=== PATIENT | male | born 1980 | race Caucasian/White ===

== ENCOUNTER 2017-04-22 15:35 | Emergency (ER) | payer OTHER ==
[~2017-04-22] VITALS: Ht 177.8 cm; Wt 82.0 kg
[2017-04-22 15:47] VITALS: TEMP 37; Ht 177.8 cm; Wt 82.0 kg
[2017-04-22] MEDS ORDERED: ACETAMINOPHEN 500 MG TAB PO STA (15:58)
[2017-04-22] MEDS ORDERED: KETOROLAC TROMETHAMINE 60 MG/2 ML VIAL IM STA (15:58)
--- NOTE | 2017-04-22 16:28 | DIAGNOSTIC IMAGING REPORT ---
LUMBAR SPINE 5 VIEWS CLINICAL HISTORY: Fall several days ago. Low back pain. FINDINGS: 5 views of the lumbar spine are compared to study dated 09/05/2014. The skeletal structures are well mineralized. There is no radiographic evidence of fracture or malalignment. Vertebral body height and alignment are maintained. Small anterior osteophytes are seen throughout. The transverse and spinous processes are intact. There is no evidence of spondylolysis. There is mild to moderate disc space narrowing seen from L3-L4 through L5-S1. The remaining intervertebral disc spaces are maintained. Mild sclerotic change is noted in the sacroiliac joints. The visualized bony pelvis appears intact. There is a nonobstructed abdominal bowel gas pattern. IMPRESSION: No acute bony abnormality is seen involving the lumbosacral spine. Electronically signed by: Rolf Guillen M.D. 04/22/2017 4:27 PM Dictated Date/Time: 04/22/2017 4:26 PM
--- NOTE | 2017-04-22 16:39 | DIAGNOSTIC IMAGING REPORT ---
PELVIS 1 OR 2 VIEW ROUTINE CLINICAL HISTORY: Fall. Left sided pelvic pain. COMPARISON STUDY: No previous studies for comparison. FINDINGS: Sacroiliac joints and symphysis pubis are intact. No acute fracture is identified within the pelvis or hips. IMPRESSION: No acute fracture within the pelvis or hips. Electronically signed by: Tacos Jeff M.D. 04/22/2017 4:38 PM Dictated Date/Time: 04/22/2017 4:37 PM
[2017-04-22] MEDS ORDERED: METH4PAK PO (17:06)
[2017-04-22] MEDS ORDERED: TRAM-10 PO (17:06)
--- NOTE | 2017-04-22 17:15 | EMERGENCY ROOM VISIT NOTE ---
History First contact with patient: 15:51 Chief Complaint: BACK PAIN Stated Complaint: BACK PAIN History of Present Illness The patient is a 36 year old male who presents to the Emergency Room with complaints of lower back pain after slipping and falling on the ice last Saturday morning. The patient was shoveling snow and slipped. The patient reports falling flat on his back and buttocks. Since that time, the patient has developed pain radiating down the left lower extremity to the foot. He has not had any bladder or bowel incontinence, left lower extremity weakness, foot drop or saddle anesthesias. The patient does report a history of chronic back issues with a history of scoliosis. The patient has not required any prior back surgery, epidural steroid injections, physical therapy or other extensive interventions. The patient has taken ibuprofen without relief, and currently rates his discomfort a 7 out of 10. Review of Systems 10 system review was performed and was negative except for pertinent positives and negatives as indicated in history of present illness Past Medical/Surgical History Medical Problems: (1) Lumbago (2) Scoliosis Surgical Problems: (1) No history of previous surgery Family History FH: hypertension Social History Smoking Status: Current Every Day Smoker Alcohol Use: occasionally Marital Status: single, in relationship Housing Status: lives with family, lives with significant other Occupation Status: unemployed Current/Historical Medications Scheduled Methylprednisolone (Medrol Dosepak), 0 PO DAILY Scheduled PRN Tramadol (Ultram), 1-2 TAB PO Q4H PRN for Pain Physical Exam Vital Signs Date Time Temp Pulse Resp B/P (MAP) Pulse Ox O2 Delivery O2 Flow Rate FiO2 04/22/17 15:47 37.0 87 20 139/79 98 Room Air Physical Exam CONSTITUTIONAL: Healthy and well nourished. Alert and oriented X 3 with positive affect. Patient appears in mild discomfort on exam. HEENT: Normocephalic, atraumatic. Pupils equal, round and reactive. NECK: Full active range of motion without discomfort. RESPIRATORY: Clear to auscultation bilaterally with no wheezing, crackles, rhonchi or stridor. CARDIOVASCULAR: Regular rate and rhythm with no murmurs, rubs or gallops. GASTROINTESTINAL: Bowel sounds present in all quadrants. Soft and nontender to palpation. MUSCULOSKELETAL: Examination shows generalized tenderness to palpation through the lower lumbar paraspinous muscles, left worse than right. He is also tender through the left SI joint. Negative logroll. Negative sitting straight leg raise. Pedal pulses are intact. Ankle plantar/dorsiflexion strength is 5 out of 5 and symmetric bilaterally. INTEGUMENTARY: No rash or other significant dermatologic conditions noted. NEUROLOGIC: No focal neurologic deficits noted. Left foot and toes are sensory intact. Medical Decision & Procedures ER Provider Diagnostic Interpretation: My interpretation of lumbar spine and pelvis x-rays does not show any acute fractures, dislocation, subluxation or lordotic reversal. Radiologist reports are as follows: LUMBAR SPINE 5 VIEWS CLINICAL HISTORY: Fall several days ago. Low back pain. FINDINGS: 5 views of the lumbar spine are compared to study dated 09/05/2014. The skeletal structures are well mineralized. There is no radiographic evidence of fracture or malalignment. Vertebral body height and alignment are maintained. Small anterior osteophytes are seen throughout. The transverse and spinous processes are intact. There is no evidence of spondylolysis. There is mild to moderate disc space narrowing seen from L3-L4 through L5-S1. The remaining intervertebral disc spaces are maintained. Mild sclerotic change is noted in the sacroiliac joints. The visualized bony pelvis appears intact. There is a nonobstructed abdominal bowel gas pattern. IMPRESSION: No acute bony abnormality is seen involving the lumbosacral spine. PELVIS 1 OR 2 VIEW ROUTINE CLINICAL HISTORY: Fall. Left sided pelvic pain. COMPARISON STUDY: No previous studies for comparison. FINDINGS: Sacroiliac joints and symphysis pubis are intact. No acute fracture is identified within the pelvis or hips. IMPRESSION: No acute fracture within the pelvis or hips. Medications Administered Medications (Trade) Dose Ordered Sig/Stacia Route Start Time Stop Time Status Last Admin Dose Admin Ketorolac Tromethamine (Toradol Inj) 60 mg NOW STAT IM 04/22/17 15:58 04/22/17 16:00 DC 04/22/17 16:35 60 MG ED Course Patient history and physical exam were performed. Nurse's notes were reviewed. Vital signs were reviewed and were normal. The patient was administered IM Toradol for pain. The patient refused oral Tylenol. X-rays of the lumbar spine and pelvis did not show any acute findings. The patient was provided prescriptions for a Medrol Dosepak and Ultram. He was encouraged to follow-up with his PCP for recheck in 2-3 days. The patient was instructed to seek further emergent reevaluation for any developing left lower extremity weakness, foot drop, saddle anesthesias or bladder/bowel incontinence. The patient voiced understanding of all discharge instructions, was happy with plan of care , and rated his discomfort a 5 out of 10 at the conclusion of my exam. Medical Decision History and physical exam findings are not consistent with cauda equina syndrome. The patient has no obvious fractures on x-ray. The patient does have symptoms consistent with an acute left lumbar radiculitis. Based on history, I do not suspect spinal abscess. [place] Drug Monitoring Program Search Results: patient reviewed within database, no issues identified Medication Reconcilliation Current Medication List: was personally reviewed by me Blood Pressure Screening Patient's blood pressure: Normal blood pressure Impression Primary Impression: Left lumbar radiculitis Additional Impression: Fall from slipping on slippery surface Departure Information Prescriptions Tramadol (Ultram) 50 Mg Tab 1-2 TAB PO Q4H Y for Pain, #20 TAB For Initial Treatment Prov: Alfredito Elder PA 04/22/17 Methylprednisolone (MEDROL DOSEPAK) 4 Mg Lavon 0 PO DAILY, #1 PKT Prov: Alfredito Elder PA 04/22/17 Referrals Efren Horner D.O. (PCP) Patient Instructions My [facility] Problem Qualifiers Additional Impression: Fall from slipping on slippery surface Encounter type: initial encounter Qualified Codes: W01.0XXA - Fall on same level from slipping, tripping and stumbling without subsequent striking against object, initial encounter
[2017-04-22 17:18] VITALS: BP 129/60; PULSE 86; O2SAT 97
--- NOTE | 2017-04-23 11:02 | Pharmacy Progress Note ---
ED Pharmacist Progress Note Date of Service: Apr 23, 2017. Charge nurse requested I go to the waiting room to speak to this patient as he was having trouble getting his Rx filled. Upon meeting with patient, he showed me a Rx bottle for tramadol which he had already filled and stated "These are ripping up my stomach. I can't take them. I need you to give me something different for pain because these aren't working." Upon talking with the patient further he stated he was already taking the medication with food and he has tried ibuprofen and Tylenol without relief as they also are too harsh on his stomach. He stated he had already called his PCP who stated they could not provide him with a different Rx as they were not familiar with his case and referred him to the ER. I relayed this info to the charge nurse. She advised counseling the patient to continue the Medrol dose pack and give it time to work before requesting new analgesic medication. This info was relayed to the patient who became visibly upset and stated "tell your supervisor [employer] that I will go buy the drugs on the street then." He then turned to depart the waiting room.
[2017-04-23] MEDS ORDERED: OMEP40CA41 PO (12:16)
[2017-04-23] MEDS ORDERED: OXYC1TAB3 PO (12:16)
== END 2017-04-22 17:20 | disposition home or self-care (01) ==
LOC: C.EDB 15:36 → C.EDD 17:20
DX: M54.16 Radiculopathy, lumbar region (principal); W00.0XXA Fall on same level due to ice and snow, initial encounter; Y92.89 Other specified places as the place of occurrence of the external cause; Y93.H1 Activity, digging, shoveling and raking; M41.9 Scoliosis, unspecified; Z82.49 Family history of ischemic heart disease and other diseases of the circulatory system; F17.210 Nicotine dependence, cigarettes, uncomplicated

== ENCOUNTER 2017-04-23 11:07 | Emergency (ER) | payer OTHER ==
[~2017-04-23] VITALS: Ht 177.8 cm; Wt 81.4 kg
[~2017-04-23 11:07] MED LIST: METH4PAK PO; TRAM-10 PO
[2017-04-23 11:16] VITALS: TEMP 37.1; Ht 177.8 cm; Wt 81.4 kg
[2017-04-23] MEDS ORDERED: DESTROY THIS MEDICATION ONE (12:15)
[2017-04-23] MEDS ORDERED: OMEP40CA41 PO (12:16)
[2017-04-23] MEDS ORDERED: OXYC1TAB3 PO (12:16)
--- NOTE | 2017-04-23 12:21 | EMERGENCY ROOM VISIT NOTE ---
ED Visit Note First contact with patient: 11:39 CHIEF COMPLAINT: Low back pain HISTORY OF PRESENT ILLNESS: This 36-year-old male patient presents to the emergency department ambulatory, complaining of pain in the low back which began last Saturday after a fall. The patient was seen here yesterday for the pain, was given a prescription for tramadol and Medrol Dosepak. The patient states he took 2 tramadol last evening at dinner and ate spaghetti with garlic bread, and also took his first dose of Medrol dose pack last night. He states shortly afterward, he began experiencing abdominal discomfort, nausea, and irritation. The patient states he feels that the tramadol is causing the GI upset. Of note, the patient also complains of GI upset when taking Tylenol and occasionally with ibuprofen. The patient states he was taking 4-6 800 mg tablets of ibuprofen 3-4 times the day after the fall. He states he did not continue taking it as often, but he does frequently take this dose of medication for his pain. The patient states he has also been taking "a few tablets" a Flexeril for muscle spasms, without significant relief. The patient states yesterday he did feel that the Toradol irritated his stomach, though it did help minimally with his pain. He has not continued to take any OTC pain medications. He did not reinjure the back. Please see lolly Han's dictation regarding incident with the patient in the waiting room prior to the patient checking in to be seen today. The patient states his pain never improves, and is worse with movement. He was unable to sleep well last night due to the discomfort. The patient denies any loss of control of their bowel or bladder functions. There has been no leg numbness or weakness, and no change in sensation. No nausea or vomiting or abdominal pain. No chest pain or shortness of breath. The patient has had prior back injuries. No dysuria or increased urinary frequency. The patient did contact his PCP today, who was unable to see him, as the patient is already established patient with them. The patient states their name was on his Medicaid insurance card, and they have dealt with his back pain in the past when he has had MRI's and other treatment performed. REVIEW OF SYSTEMS: A 10 system review of systems was performed with positives and pertinent negatives listed in the history of present illness. All other systems were reviewed and are negative. ALLERGIES: None MEDICATIONS: Medrol Dosepak PMH: Low back pain SOCIAL HISTORY: The patient lives locally with family. He denies drug, alcohol use. The patient admits to smoking cigarettes daily. PHYSICAL EXAM: VITALS: Vitals are noted on the nurse's note and reviewed by myself. Vital signs stable. GENERAL: This is a 36 year old white male, in no acute distress, nondiaphoretic , well-developed well-nourished. The patient is lying in the litter talking on the cell phone. He does not appear to be in any acute distress or significant amount of pain while lying on the litter. SKIN: The skin was without rashes, erythema, edema, or bruising. Capillary refill less than 2 seconds. NECK: Supple without nuchal rigidity. No cervical spine tenderness. No paraspinous muscle tenderness. HEART: Regular rate and rhythm without murmurs gallops or rubs. LUNGS: Clear to auscultation bilaterally without wheezes, rales or rhonchi. ABDOMEN: Positive bowel sounds x 4. Normal tympanic percussion. Soft, nontender, without masses or organomegaly. Crowder sign negative. MUSCULOSKELETAL: No muscle atrophy, erythema, or edema noted of the back. There is moderate tenderness over the lumbar spinous processes. There is moderate tenderness over the paraspinous muscles bilaterally. There is no tenderness over the thoracic spine or paraspinous muscles. There are no muscle spasms present. The patient is slow to move around with maximum tenderness with position changes. Positive straight leg raise test. NEURO: Patient was alert and oriented to person place and time. Normal sensation to light and sharp touch. Deep tendon reflexes 2+ in the lower extremities. Dorsalis pedis pulse 2+ bilaterally. Strength 5/5 and equal in the bilateral lower extremities. EMERGENCY DEPARTMENT COURSE: The patient was seen and evaluated as above. I did speak with Guille pharmacist and [employer] supervisor, regarding the incident in the waiting room. They state the patient became agitated and did leave the emergency department for approximately 10 minutes, then did return and decided to be seen. I had a long discussion with the patient regarding proper use of OTC pain medication as well as proper use of prescription medication, as the patient has been taking much higher than recommended dosages of muscle relaxers and ibuprofen. I do suspect a possible gastritis with possible gastric ulcer component to his GI upset, as his symptoms are related to Tylenol and Tramadol, neither of which are well-known for causing this symptom. He experienced the GI upset after taking several medications at one time and eating a high-acidity food last evening. I discussed with the patient the possibility that the Medrol Dosepak was responsible for his symptoms and he states he does not feel that that is what caused the symptoms. The patient states he has been using excessive amounts of ibuprofen without GI upset and has not had a problem with the steroids. He states he continues to be in a significant amount of pain despite medications he has been taking. I spoke with Guille, Pharmacist, regarding possible pain management options for this patient. The patient is on Medrol Dosepak, so we did not wish to start the patient on NSAIDs at this time. Due to the patient's reaction to Tramadol and acetaminophen , he will be given a VERY short course of OxyIR to help him in this acute phase of his pain. I also discussed with Guille and the patient my concerns regarding the high dose of NSAIDs the patient takes. I strongly encouraged him to follow- up with his PCP for possible further testing to evaluate for GI ulcer. We did agree to start the patient on a PPI until he is able to see his PCP for follow- up. The patient is agreeable to this plan. I did reiterate several times to the patient that we will not treat his pain chronically here in the ED, and that he would need to see his PCP or consider orthopedic follow-up if he continues to experience back pain. The patient did give me his Tramadol pills which he brought to the ED with him to be destroyed. I advised him that I do not wish for him to have multiple narcotic prescriptions lying around with the potential for abuse. The patient was agreeable, as he felt they made him sick anyway. The pill bottle was given to Guille, ED pharmacist, to be destroyed. The patient did not have any acute pain in his abdomen, specifically LUQ, so I did not feel that he requires emergent evaluation for gastric ulcer/perforation , though I do feel that outpatient monitoring and management is warranted. Of note, the patient did apologize for his outburst and comment in the waiting room regarding getting narcotic medications on the street. The patient states "I wouldn't even know where to get them". PDMP was reviewed, and did not reveal any suspicious findings. I attest that I have personally reviewed the patient's current medication list. Patient was found to have normal blood pressure on screening and does not require follow-up. Etiologies such as lumbago, sciatica, cauda equina, epidural abscess, osteomyelitis, fracture, aortic disease, metastatic disease, infection, renal colic, gastrointestinal, as well as others were entertained. DIAGNOSIS: Lumbar contusion, lumbar radiculitis, fall on slippery surface Problem List Medical Problems: (1) Lumbago Status: Chronic (2) Scoliosis Status: Chronic Current/Historical Medications Scheduled Methylprednisolone (Medrol Dosepak), 0 PO DAILY Omeprazole (Prilosec), 40 MG PO DAILY Scheduled PRN Oxycodone Ir (Roxicodone Ir), 1 TAB PO Q6H PRN for Pain Allergies Coded Allergies: No Known Allergies (Unverified , 04/23/17) Vital Signs Date Time Temp Pulse Resp B/P (MAP) Pulse Ox O2 Delivery O2 Flow Rate FiO2 04/23/17 12:41 85 18 125/82 98 04/23/17 11:16 37.1 7 18 121/77 98 Room Air Departure Information Impression Primary Impression: Contusion of lower back Additional Impressions: Left lumbar radiculitis Fall from slipping on slippery surface Dispostion Home / Self-Care Condition GOOD Prescriptions Omeprazole (PRILOSEC) 40 Mg Cap 40 MG PO DAILY for 30 Days, #30 CAP Prov: Nicol Mendez PA-C 04/23/17 Oxycodone Ir (Roxicodone Ir) 5 Mg Tab 1 TAB PO Q6H Y for Pain, #4 TAB For Initial Treatment Prov: Nicol Mendez PA-C 04/23/17 Referrals No Doctor, Assigned (PCP) Patient Instructions ED Chronic Pain Management, ED Low Back Pain Injury, [facility] Additional Instructions You have been treated in the Emergency Department for Back Pain. You have been prescribed OxyIR to be used for pain control. This is a narcotic medication. You cannot drive or consume alcohol while on this medicine. This medicine should only be used for pain that cannot be controlled with over-the- counter pain medicines. Take this medication ONLY as prescribed. It can cause dependence if used improperly or for long periods of time. Use the Flexeril you have at home for any muscle spasms. Take your first dose at bedtime as it can make you drowsy. Always take all medications as prescribed. As discussed, I suspect some GI irritation or possible ulcer due to your overuse of NSAIDs and concomitant steroid use. I do recommend you start Prilosec 40 mg daily until advised otherwise by your PCP. Do not ever exceed recommended daily dosages of medications. Please do not ever take prescription medications differently than they are prescribed. Continue to take the Medrol Dosepak as prescribed. Do not take any NSAIDs ( ibuprofen, Motrin, Advil, Aleve, naproxen, Naprosyn) while taking Medrol Dosepak. For pain control, you can use the following [id number]-[id number] medicines (if >12 yo): Ibuprofen(Motrin, Advil) may be used for fever or pain. Use 600mg every six hours as needed. Take with food. Avoid using more than 2400mg in a 24 hour period. Do not use 2400mg per day for more than three consecutive days without physician direction. Prolonged inappropriate use can lead to stomach upset or ulcers. Do not take this medication while taking Medrol Dosepak or other steroids. (AND/OR) Acetaminophen(Tylenol) may be used for fever or pain. Use 1000mg every six hours as needed. Avoid using more than 3000mg in a 24 hour period. If this is an acute injury, ice can be applied to the area of pain for the first 3 days to help decrease pain and inflammation. After the first 3 days, a heating pad can be used over the area for continued soothing relief. You should schedule a follow-up appointment in 2-3 days with your Primary Care Provider for further evaluation and treatment of your back pain. It is imperative that you follow-up with them regarding the GI irritation and long- term back pain. As discussed, you may benefit from Physical Therapy. The ER will not prescribe chronic pain medication. You should seek care by your PCP regarding the need for any further pain medication. Return to the Emergency Department if your current symptoms worsen despite treatment course outlined above, or if you develop any of the following symptoms : intractable pain despite aforementioned treatment course, loss of control of your bowel or bladder, numbness or tingling in your groin, or development of a fever. Problem Qualifiers Primary Impression: Contusion of lower back Encounter type: subsequent encounter Qualified Codes: S30.0XXD - Contusion of lower back and pelvis, subsequent encounter Additional Impressions: Fall from slipping on slippery surface Encounter type: subsequent encounter Qualified Codes: W01.0XXD - Fall on same level from slipping, tripping and stumbling without subsequent striking against object, subsequent encounter
[2017-04-23 12:41] VITALS: BP 125/82; PULSE 85; O2SAT 98
== END 2017-04-23 12:41 | disposition home or self-care (01) ==
LOC: C.EDB 11:09 → C.EDD 12:41
DX: S30.0XXA Contusion of lower back and pelvis, initial encounter (principal); W01.0XXA Fall on same level from slipping, tripping and stumbling without subsequent striking against object, initial encounter; M54.16 Radiculopathy, lumbar region; M41.9 Scoliosis, unspecified; F17.200 Nicotine dependence, unspecified, uncomplicated; Z79.899 Other long term (current) drug therapy